=== PATIENT | male | born 1935 | race American Indian/Alaskan Native ===

== ENCOUNTER 2017-04-30 07:22 | Outpatient (CLI) | payer MEDICARE ==
--- NOTE | 2017-04-30 15:51 | PET Report ---
PET/CT:04/30/17 07:22:00 CLINICAL: Esophageal mass. RADIOPHARMACEUTICAL: 14.79mCi F18-FDG. COMPARISON: 07/18/11 TECHNIQUE- Following intravenous injection of F-18 FDG and an approximately 60 minute uptake period, CT and PET images from the mid skull to the upper thighs were acquired with the patient in the fasted state. No contrast was administered. The CT protocol used for this PET CT study is designed for attenuation correction and anatomic localization of PET abnormalities. This overhead irrigator CT is not desired to produce and cannot replace, [id number] diagnostic CT scans with specific imaging protocols for different body parts and indications. Plasma glucose at the time of this test: 104g/dl. The standardized uptake values (SUV) are normalized to patient body weight and indicate the highest activity concentration (SUV max) in a given disease site. FINDINGS: Brain--Physiologic FDG uptake in the visualized regions of the brain. Neck--Physiologic FDG uptake . Chest--Physiologic FDG uptake in mediastinal blood pool and myocardium. Lungs--No abnormal uptake. No pulmonary nodule or mass. Mild emphysema. Pleura/pericardium--No abnormal uptake. New small bilateral pleural effusions, right larger than left. Thoracic nodes--A non-FDG avid right paratracheal posterior superior mediastinal lymph node is new and measures 5.1 x 3.3 x 2.7 cm with SUV 2.1. Hepatobiliary--No abnormal uptake. Liver background SUV mean, as a reference for comparing FDG studies, is 2.4 compared to 2.8 on the last exam. A 6 mm right hepatic cyst is near the surface of the right lobe and is smaller compared to prior exam. No liver mass. Spleen--No abnormal uptake. Pancreas--No abnormal uptake. Adrenal Glands--No abnormal uptake. Kidneys/Ureters/Bladder--No abnormal uptake. Abdominopelvic Nodes--No abnormal uptake. Bowel/Peritoneum/Mesentery--No abnormal uptake. Pelvic organs--No abnormal uptake. Bones/Soft Tissues--No abnormal uptake. Other findings: Status post partial gastrectomy with normal anastomosis. No esophageal mass identified. IMPRESSION- 1. A 5.1 cm right paratracheal lymph node with minimal FDG uptake is suspicious for malignancy. It is probably amenable to a CT-guided percutaneous needle biopsy using a posterior approach. 2. Small bilateral pleural effusions, right larger than left. 3. Abdomen and pelvis.
== END 2017-04-30 07:23 | disposition home or self-care (01) ==
LOC: PET 07:22
PROVIDERS: ATTEND Specialist
DX: C15.9 Malignant neoplasm of esophagus, unspecified (principal); J43.9 Emphysema, unspecified; J90 Pleural effusion, not elsewhere classified; K76.89 Other specified diseases of liver; I12.0 Hypertensive chronic kidney disease with stage 5 chronic kidney disease or end stage renal disease; N18.6 End stage renal disease; I48.91 Unspecified atrial fibrillation; Z90.3 Acquired absence of stomach [part of]
CPT/HCPCS: 78815; 82962; A9552